=== PATIENT | male | born 1940 | race American Indian/Alaskan Native ===

== ENCOUNTER 2020-11-23 14:52 | Emergency (ER) | payer MEDICARE ==
[2020-11-23 16:00] VITALS: BP 118/70
--- NOTE | 2020-11-23 16:22 | Emergency Department Report ---
ED General Adult HPI - General Chief complaint: Weakness Stated complaint: BODY PAIN/RT ARM PAIN Time Seen by Provider: 11/23/20 16:00 Source: patient Mode of arrival: Stretcher Limitations: Physical Limitation - History of Present Illness Initial comments: CC: right arm pain, swelling HPI: This is a 80 yo male with hx of CVA, DM who presents with right arm swelling and pain in addition to generalized body pain. Possible fall. Recently hospitalized. Patient is a poor historian. Hx obtained from EMS. I spoke with daughter caregiver Marcus . Patient was discharged from [facility]. Diagnosed with stroke. He has had multiple falls. He fell yesterday. He is bed-bound. He has not walked since 2010. Daughter has cared for Mr. Nunes since last year. He has had memory loss and personality changes without offical diagnosis of dementia. Daughter is concerned for poor circulation in the right arm. She is worried about the swelling of the right arm. Daughter plans to place Mr. Nunes in a custodial facility. -: Gradual, days(s) (Several days) Location: right, upper extremity Severity scale (0 -10): 4 Quality: aching Consistency: constant Improves with: none Worsens with: none Associated Symptoms: other (Generalized pain) ED Review of Systems ROS: Stated complaint: BODY PAIN/RT ARM PAIN Other details as noted in HPI Comment: Unobtainable due to pts medical conditions (Limited due to dementia) ED Past Medical Hx - Past Medical History Previous Medical History?: Yes Hx CVA: Yes Hx Diabetes: Yes - Surgical History Past Surgical History?: Yes Additional Surgical History: Right knee surgery - Social History Smoking Status: Former Smoker Substance Use Type: None ED Physical Exam - General Limitations: Physical Limitation General appearance: alert, in no apparent distress, other (Frail) - Head Head exam: Present: atraumatic, normocephalic - Eye Eye exam: Present: normal appearance - ENT ENT exam: Present: mucous membranes moist - Neck Neck exam: Present: normal inspection, full ROM - Respiratory Respiratory exam: Present: normal lung sounds bilaterally. Absent: respiratory distress, wheezes, rales, rhonchi - Cardiovascular Cardiovascular Exam: Present: regular rate, normal rhythm, normal heart sounds. Absent: systolic murmur, diastolic murmur, rubs, gallop - GI/Abdominal GI/Abdominal exam: Present: soft, normal bowel sounds. Absent: distended, tenderness, guarding, rebound - Extremities Exam Extremities exam: Present: other (Right upper extremity: Contracted flexed at the elbow global swelling ) - Neurological Exam Neurological exam: Present: alert, other (Oriented to situation name) - Psychiatric Psychiatric exam: Present: normal affect, normal mood - Skin Skin exam: Present: warm, dry, intact, normal color. Absent: rash ED Course Vital Signs 11/23/20 15:53 Pulse Rate 98 H Respiratory 16 Rate Blood Pressure 118/70 [Left] O2 Sat by Pulse 98 Oximetry ED Medical Decision Making - Radiology Data Patient Name: JOSE NUNES Gender: Male Date of : 1940 Referring Provider: JOHN RAINES Organization: [facility] Accession Number: [id number] Requested Date: November 23, 2020 16:01 Report Status: Final Requested Procedure: 1 Procedure Description: VL venous duplex UE RT Modality: VL Findings Reporting MD: Henok Salomon Dictation Time: November 23, 2020 15:49 Distance Learning Coordinator: Not available Power Engineer Date: DUPLEX DOPPLER UPPER EXTREMITY VENOUS, RIGHT INDICATION / CLINICAL INFORMATION: arm pain swelling. TECHNIQUE: Duplex doppler imaging was performed through the veins of the right upper extremity using venous compression and other maneuvers. COMPARISON: None available. FINDINGS: RIGHT INTERNAL JUGULAR VEIN: Negative. RIGHT SUBCLAVIAN VEIN: Negative. RIGHT AXILLARY VEIN: Negative. RIGHT BRACHIAL VEIN: Negative. RIGHT FOREARM VEINS: Negative. RIGHT BASILIC VEIN (SUPERFICIAL): Negative. ADDITIONAL FINDINGS: None. IMPRESSION: 1. No sonographic evidence for DVT. Signer Name: Henok Salomon MD Signed: 11/23/2020 3:49 PM Workstation Name: [id number] Radiology interpretation of radiographs of the right humerus and right forearm: advanced generative changes in the shoulder elbow wrist with elbow and wrist most affected no fracture no dislocation soft tissues normal normal alignment - Medical Decision Making Right upper extremity swelling: I explained to the daughter that the extremity would be swollen due to immobility from previous stroke. Daughter did recall that he has had stroke in the past. The extremity is flexed contracted and mobile. Ultrasound negative for DVT, humerus forearm radiograph is negative for fracture or dislocation. Patient is discharged home. I spoke with daughter about plans for custodial facility placement. She has obtained approval by his insurance. Critical care attestation.: If time is entered above; I have spent that time in minutes in the direct care of this critically ill patient, excluding procedure time. ED Disposition Clinical Impression: CVA (cerebral vascular accident), Frequent falls, Right upper limb pain Disposition: HOME / SELF CARE / HOMELESS Is pt being admited?: No Does the pt Need Aspirin: No Condition: Stable Instructions: Supporting Someone After a Stroke Referrals: MAYRA BATRES MD [Staff Physician] - 3-5 Days
--- NOTE | 2020-11-23 16:53 | Vascular Lab Report ---
DUPLEX DOPPLER UPPER EXTREMITY VENOUS, RIGHT INDICATION / CLINICAL INFORMATION: arm pain swelling. TECHNIQUE: Duplex doppler imaging was performed through the veins of the right upper extremity using venous comp ression and other maneuvers. COMPARISON: None available. FINDINGS: RIGHT INTERNAL JUGULAR VEIN: Negative. RIGHT SUBCLAVIAN VEIN: Negative. RIGHT AXILLARY VEIN: Negative. RIGHT BRACHIAL VEIN: Negative. RIGHT FOREARM VEINS: Negative. RIGHT BASILIC VEIN (SUPERFICIAL): Negative. ADDITIONAL FINDINGS: None. IMPRESSION: 1. No sonographic evidence for DVT. Signer Name: Henok Salomon MD Signed: 11/23/2020 4:49 PM Workstation Name: [id number]
--- NOTE | 2020-11-23 17:22 | XRay Report ---
Right humerus-4 views Right forearm-2 views INDICATION: arm pain. COMPARISON: None. IMPRESSION: No acute osseous abnormality in the right humerus or forearm. Moderately advanced degene rative changes are present in the shoulder, elbow, and wrist with the elbow and the wrist most affect ed. Soft tissues are normal. Normal alignment. Signer Name: Enzo Henry MD Signed: 11/23/2020 5:18 PM Workstation Name: [id number]
== END 2020-11-23 18:31 | disposition home or self-care (01) ==
LOC: ED 14:52
DX: I63.9 Cerebral infarction, unspecified (principal); M79.621 Pain in right upper arm; E11.8 Type 2 diabetes mellitus with unspecified complications; Z98.890 Other specified postprocedural states; Z87.891 Personal history of nicotine dependence; W19.XXXA Unspecified fall, initial encounter; Y93.89 Activity, other specified; Y92.89 Other specified places as the place of occurrence of the external cause; Y99.8 Other external cause status
CPT/HCPCS: 99284